=== PATIENT | male | born 1955 | race Caucasian/White ===

== ENCOUNTER 2017-10-06 07:45 | Emergency (ER) | payer OTHER ==
[~2017-10-06] VITALS: Ht 180.3 cm; Wt 92.1 kg
[2017-10-06 07:52] VITALS: Ht 180.3 cm; Wt 92.1 kg
[2017-10-06 10:15] VITALS: BP 128/71
== END 2017-10-06 10:15 | disposition home or self-care (01) ==
LOC: ED 07:45
DX: S68.126A Partial traumatic metacarpophalangeal amputation of right little finger, initial encounter (principal); X58.XXXA Exposure to other specified factors, initial encounter; Y93.89 Activity, other specified; Y92.89 Other specified places as the place of occurrence of the external cause; Y99.8 Other external cause status
CPT/HCPCS: 26910; 90715; J0696; J2270; J3490; J7030; Q0162